=== PATIENT | male | born 1990 | race Caucasian/White ===

== ENCOUNTER 2023-11-22 18:20 | Emergency (ER) | payer OTHER ==
[2023-11-22] MEDS ORDERED: KETOROLAC 30 MG/ML INJ ONE (19:44)
[2023-11-22] MEDS ORDERED: ONDANSETRON 4 MG/2 ML VIAL ONE (19:44)
[2023-11-22] MEDS ORDERED: NA CHLORIDE 0.9% 1,000 ML ONE (19:45)
[2023-11-22] MEDS ORDERED: MORPHINE 4 MG/ML SYR ONE (19:45)
[2023-11-22 19:50] LABS: Absolute Basophils 0.2 K/uL (0-0.5); Absolute Eosinophils 0.2 K/uL (0-0.5); Absolute Lymphocytes (CBC) 3.1 K/uL (0.7-4.9); Absolute Monocytes 1.2 K/uL (0.1-1.3); Absolute Neutrophil 8.2 K/uL (1.8-8.0); Basophils % 1.2 % (0-1.3); Eosinophils % 1.3 % (0-4.4); Hematocrit 43.4 % (39.6-49.0); Hemoglobin 14.3 g/dL (13.6-17.9); Lymphocytes % 24.3 % (15.3-44.8); MCH 28.1 pg (27.0-35.0); MCHC 32.9 g/dL (32.0-36.0); MCV 85.4 fL (80-100); MPV 7.2 fL (7.6-11.3); Monocytes % 9.2 % (3.3-12.3); Nucleated Red Blood Cells % 0.1 % (0-0); Platelets 423 thou/uL (152-406); RBC Red Blood Cell Count 5.08 M/uL (4.33-5.43); Red Cell Distribution Width 13.1 % (12.1-15.2)
[2023-11-22 20:06] LABS: Albumin 3.9 g/dL (3.4-5.0); Albumin/Globulin Ratio 1.1 (1.1-1.8); Bilirubin Total 0.4 mg/dL (0.2-1.0); Globulin 3.7 g/dL (2.3-3.5); Protein, Total 7.6 g/dL (6.4-8.2)
--- NOTE | 2023-11-22 20:30 | RAD REPORT ---
EXAM DESCRIPTION: CTAbdomen Pelvis W Contrast - 11/22/2023 8:13 pm CLINICAL HISTORY: Abdominal pain. ABD PAIN COMPARISON: No comparisons TECHNIQUE: Biphasic CT imaging of the abdomen and pelvis was performed with 100 ml non-ionic IV cont rast. All CT scans are performed using dose optimization technique as appropriate and may include automated exposure control or mA/KV adjustment according to patient size. FINDINGS: The lung bases are clear.Cholecystectomy clips. The liver, spleen, pancreas, left adrenal gland and left kidney are within normal limits. 23 mm right adrenal mass, nonspecific but favored to be an adenoma. Mild right hydronephrosis and hydroureter is present. This is caused by 5 mm stone in the mid to dist al right ureter. No bowel obstruction, free air, free fluid or abscess. The appendix is normal. No evidence of signi ficant lymphadenopathy. No suspicious bony findings. IMPRESSION: 5 mm stone in the mid to distal right ureter resulting in mild right hydronephrosis and hydroureter.
[2023-11-22 21:06] LABS: Specific Gravity > 1.030 (1.005-1.030); Sqamous Epithelial None Seen /HPF (None Seen); Urine Bacteria None Seen /HPF (<20); Urine Bilirubin NEGATIVE (Negative); Urine Blood 3+ (Negative); Urine Clarity Clear (Clear); Urine Color Light-Yellow (Yellow); Urine Culture Reflex Order NOT NEEDED; Urine Glucose NEGATIVE (Negative); Urine Ketones 1+ (Negative); Urine Microscopic Reflex YN ORDER UMIC; Urine Mucus Slight /HPF (None Seen); Urine Nitrite NEGATIVE (Negative); Urine Protein TRACE (Negative); Urine RBC >50 /HPF (None Seen); Urine Urobilinogen Normal (Normal); Urine WBC <5 /HPF (<5)
--- NOTE | 2023-11-22 21:18 | EDPHYS ---
Physician Documentation [facility] Name: Kenton Gutierrez Age: 33 yrs Sex: Male : 1990 Arrival Date: 11/22/2023 Time: 18:20 Bed 2 Private MD: ED Physician Brit Childers HPI: 11/21 19:00 This 33 yrs old Male presents to ER via Ambulatory with complaints of ec2 Possible Kidney Stone. 19:00 Patient arrives today for evaluation of lower abdominal pain and right flank pain. ec2 Patient reports history of previous kidney stone, states he was clinically diagnosed with a kidney stone approximately 2 weeks ago. Initially had hematuria that is improved. Patient reports associated nausea, no vomiting. Reports history of cholecystectomy. Reports no fevers or chills. . Historical: - Allergies: 18:58 Sulfa (Sulfonamide Antibiotics); hb - Home Meds: 18:58 Flomax 0.4 mg Oral capsule [Active]; hb - PMHx: 18:58 Kidney Stones; Pancreatic Tumor; Sarcoma - Left Leg; hb - PSHx: 18:58 Sarcoma; Cholecystectomy; hb - Immunization history:: Adult Immunizations up to date. - Infectious Disease History:: Denies. - Social history:: Smoking status: Patient denies any tobacco usage or history of. ROS: 19:00 Constitutional: as per hpi ec2 Exam: 19:00 Constitutional: GEN: NAD Head: atraumatic Eyes: EOMI Ears: External ears are ec2 normal. CV: regular rate LUNGS: no respiratory distress ABD: non-distended, soft, tender in the right lower quadrant, no guarding, not rigid, right CVA TTP. SKIN: no evidence of rashes MSK: no evidence of trauma NEURO: moves all extremities equally Vital Signs: 18:56 BP 154 / 99; Pulse 96; Resp 16; Temp 98.9(TE); Pulse Ox 100% ; Weight 112 kg; Height 5 hb ft. 9 in. ; Pain 8/10; 19:40 BP 151 / 98; Pulse 108; Resp 20 S; Pulse Ox 99% on R/A; as6 20:41 BP 170 / 79; Pulse 92; Resp 16 S; Pulse Ox 97% on R/A; as6 21:17 BP 148 / 90; Pulse 91; Resp 16; Temp 98.4; Pulse Ox 100% ; Pain 0/10; jj7 18:56 Body Mass Index 36.46 (112.00 kg, 175.26 cm) hb 18:56 Pain Scale: Adult hb 21:17 Pain Scale: Adult jj7 MDM: 18:59 Patient medically screened. ec2 19:00 Data reviewed: vital signs. ED course: Patient arrives today for evaluation abdominal ec2 pain and flank pain for examination markable for abdominal findings as well. Will obtain lab work, urine studies, CT imaging. Considering UTI, pyelonephritis, ureteral stone. Additionally appendicitis. 20:10 ED course: Patient signed out to oncoming physician with pending lab work and CT ec2 imaging.. 20:45 ED course: 5 mm kidney stone noted right distal ureter with minimal hydro-. Waiting on sp3 UA. Pain is under control. Probable discharge home with urology follow-up and pain control meds.. 21:16 ED course: 5 mm kidney stone noted on the right ureter. UA demonstrates RBCs but no sp3 infection. Pain is still under control. We will discharge patient with follow-up with Dr. Youssef and p.o. diclofenac and tramadol as needed. Patient knows he may return to pain is unbearable or he gets worse.. 11/21 19:00 Order name: CBC with Diff; Complete Time: 20:30 ec2 11/21 19:00 Order name: CMP; Complete Time: 20:17 ec2 11/21 19:00 Order name: Lipase; Complete Time: 20:17 ec2 11/21 19:00 Order name: Urinalysis w/ reflexes; Complete Time: 21:06 ec2 11/21 19:00 Order name: CT Abd/Pelvis - IV Contrast Only; Complete Time: 20:30 ec2 11/21 19:00 Order name: IV Saline Lock; Complete Time: 19:43 ec2 11/21 19:00 Order name: Labs collected and sent; Complete Time: 19:43 ec2 Administered Medications: 19:52 Drug: NS 0.9% IV 1000 ml IV at 1 bolus Per protocol; 1000 mL bolus Route: IV; Rate: 1 as6 bolus; Site: right antecubital; 21:18 Follow up: IV Status: Completed infusion jj7 19:53 Drug: TORadol - Ketorolac IVP 15 mg IVP once Route: IVP; Site: right antecubital; as6 21:19 Follow up: Response: Marked relief of symptoms; Pain is decreased jj7 19:53 Drug: Ondansetron IVP 4 mg IVP once; over 2 minutes Route: IVP; Site: right antecubital;as6 21:18 Follow up: Response: Marked relief of symptoms jj7 19:53 Drug: morphine IVP or IV 4 mg IVP once over 4 mins Route: IVP; Infused Over: 4 mins; as6 Site: right antecubital; 21:19 Follow up: Response: Marked relief of symptoms; Pain is decreased jj7 Disposition Summary: 11/22/23 21:17 Discharge Ordered Notes: Location: Home sp3 Condition: Stable sp3 Diagnosis - Ureterolithiasis, kidney stone sp3 Followup: sp3 - With: Private Physician - When: Upon discharge from the Emergency Department - Reason: Continuance of care Followup: sp3 - With: Semaj Youssef MD - When: Upon discharge from the Emergency Department - Reason: Recheck today's complaints Discharge Instructions: - Discharge Summary Sheet sp3 - Kidney Stones sp3 - Dietary Guidelines to Help Prevent Kidney Stones sp3 Forms: - Medication Reconciliation Form sp3 - Thank You Letter sp3 - Antibiotic Education sp3 - Prescription Opioid Use sp3 - Patient Portal Instructions sp3 - Leadership Thank You Letter sp3 Prescriptions: - Diclofenac Sodium 75 mg Oral Tablet Sustained Release - take 1 tablet ORAL route 2 times per day; 30 tablet; Refills: 0, Product sp3 Selection Permitted - Tramadol 50 mg Oral Tablet - take 1 tablet ORAL route every 8 hours as needed; 12 tablet; Refills: 0, sp3 Product Selection Permitted Signatures: Dispatcher [employer] EDAndreea Hu RN RN Brit Wagoner MD MD sp3 Arturo Hughes RN RN as6 Herman Garcia MD MD ec2 Jesusita Wylie RN jj7 Corrections: (The following items were deleted from the chart) 19:03 19:00 ED course: Patient arrives today for evaluation abdominal pain and flank pain for ec2 examination markable for abdominal findings as well. Will obtain lab work, urine studies, CT imaging. . ec2
--- NOTE | 2023-11-22 21:18 | ER ---
Nurse's Notes [facility] Name: Kenton Gutierrez Age: 33 yrs Sex: Male : 1990 Arrival Date: 11/22/2023 Time: 18:20 Bed 2 Private MD: Diagnosis: Ureterolithiasis, kidney stone Presentation: 11/21 18:56 Chief complaint: Worsening right flank and groin pain x 2 weeks, N/V x 2 days. On hb Flomax for kidney stones. Coronavirus screen: At this time, the client does not indicate any symptoms associated with coronavirus-19. Ebola Screen: No symptoms or risks identified at this time. Initial Sepsis Screen: Does the patient meet any 2 criteria? No. Patient's initial sepsis screen is negative. Does the patient have a suspected source of infection? No. Patient's initial sepsis screen is negative. Risk Assessment: Do you want to hurt yourself or someone else? Patient reports no desire to harm self or others. Onset of symptoms was November 08, 2023. 18:56 Method Of Arrival: Ambulatory hb 18:56 Acuity: YU 3 hb Triage Assessment: 19:00 General: Appears in no apparent distress. Behavior is calm, cooperative. Pain: Pain hb currently is 8 out of 10 on a pain scale. Neuro: Level of Consciousness is awake, alert, obeys commands, Oriented to person, place, time, situation. Cardiovascular: Patient's skin is warm and dry. Respiratory: Respiratory effort is even, unlabored, Respiratory pattern is regular, symmetrical. GI: Reports nausea, vomiting. : Reports flank and groin pain. Historical: - Allergies: 18:58 Sulfa (Sulfonamide Antibiotics); hb - Home Meds: 18:58 Flomax 0.4 mg Oral capsule [Active]; hb - PMHx: 18:58 Kidney Stones; Pancreatic Tumor; Sarcoma - Left Leg; hb - PSHx: 18:58 Sarcoma; Cholecystectomy; hb - Immunization history:: Adult Immunizations up to date. - Infectious Disease History:: Denies. - Social history:: Smoking status: Patient denies any tobacco usage or history of. Screenin:33 [facility] ED Fall Risk Assessment (Adult) History of falling in the last 3 months, as6 including since admission No falls in past 3 months (0 pts) Confusion or Disorientation No (0 pts) Intoxicated or Sedated No (0 pts) Impaired Gait No (0 pts) Mobility Assist Device Used No (0 pt) Altered Elimination No (0 pt) Score/Fall Risk Level 0 - 2 = Low Risk Oriented to surroundings, Maintained a safe environment, Educated pt \T\ family on fall prevention, incl call for assistance when getting out of bed, Assessed \T\ reinforced patient's understanding of fall precautions, Hourly rounding (assess needs \T\ fall precautionary measures) done. Abuse screen: Denies threats or abuse. Denies injuries from another. Nutritional screening: No deficits noted. Tuberculosis screening: No symptoms or risk factors identified. Assessment: 19:40 General: Appears uncomfortable, Behavior is calm, cooperative. Pain: Complains of pain as6 in left flank and right flank. Neuro: Level of Consciousness is awake, alert, obeys commands, Oriented to person, place, time, situation. Cardiovascular: Capillary refill < 3 seconds Patient's skin is warm and dry. Respiratory: Respiratory effort is even, unlabored, Respiratory pattern is regular, symmetrical. GI: Reports nausea. : Reports pain in bilateral flank(s). EENT: No deficits noted. No signs and/or symptoms were reported regarding the EENT system. Derm: Skin is intact, is healthy with good turgor. Musculoskeletal: Circulation, motion, and sensation intact. 20:32 Reassessment: Patient appears in no apparent distress at this time. Patient and/or as6 family updated on plan of care and expected duration. Pain level reassessed. Patient is alert, oriented x 3, equal unlabored respirations, skin warm/dry/pink. Patient states feeling better. Patient states symptoms have improved. Vital Signs: 18:56 BP 154 / 99; Pulse 96; Resp 16; Temp 98.9(TE); Pulse Ox 100% ; Weight 112 kg; Height 5 hb ft. 9 in. ; Pain 8/10; 19:40 BP 151 / 98; Pulse 108; Resp 20 S; Pulse Ox 99% on R/A; as6 20:41 BP 170 / 79; Pulse 92; Resp 16 S; Pulse Ox 97% on R/A; as6 21:17 BP 148 / 90; Pulse 91; Resp 16; Temp 98.4; Pulse Ox 100% ; Pain 0/10; jj7 18:56 Body Mass Index 36.46 (112.00 kg, 175.26 cm) hb 18:56 Pain Scale: Adult hb 21:17 Pain Scale: Adult jj7 ED Course: 18:24 Patient arrived in ED. im 18:25 Herman Garcia MD is Attending Physician. ec2 18:58 Triage completed. hb 19:00 Arm band placed on. hb 19:43 CBC with Diff Sent. as6 19:43 Lipase Sent. as6 19:44 CMP Sent. as6 20:10 Attending Physician role handed off by Herman Garcia MD ec2 20:10 Brit Childers MD is Attending Physician. ec2 20:15 CT Abd/Pelvis - IV Contrast Only In Process Unspecified. EDMS 20:34 Bed in low position. Call light in reach. Side rails up X 1. Pulse ox on. NIBP on. as6 20:41 Arturo Hughes, PRIYANK is Primary Nurse. as6 21:17 Semaj Youssef MD is Referral Physician. sp3 21:17 No provider procedures requiring assistance completed. IV discontinued, intact, jj7 bleeding controlled, No redness/swelling at site. Pressure dressing applied. Administered Medications: 19:52 Drug: NS 0.9% IV 1000 ml IV at 1 bolus Per protocol; 1000 mL bolus Route: IV; Rate: 1 as6 bolus; Site: right antecubital; 21:18 Follow up: IV Status: Completed infusion jj7 19:53 Drug: TORadol - Ketorolac IVP 15 mg IVP once Route: IVP; Site: right antecubital; as6 21:19 Follow up: Response: Marked relief of symptoms; Pain is decreased jj7 19:53 Drug: Ondansetron IVP 4 mg IVP once; over 2 minutes Route: IVP; Site: right antecubital;as6 21:18 Follow up: Response: Marked relief of symptoms jj7 19:53 Drug: morphine IVP or IV 4 mg IVP once over 4 mins Route: IVP; Infused Over: 4 mins; as6 Site: right antecubital; 21:19 Follow up: Response: Marked relief of symptoms; Pain is decreased jj7 Medication: 20:34 VIS not applicable for this client. as6 Outcome: 21:17 Discharge ordered by . sp3 21:31 Discharged to home ambulatory, with significant other, jj7 21:31 Condition: improved 21:31 Discharge instructions given to patient, Instructed on discharge instructions, follow up and referral plans. no driving heavy equipment, Demonstrated understanding of instructions, follow-up care, medications, Prescriptions given X 2, 21:32 Patient left the ED. jj7 Signatures: Dispatcher [employer] EDAndreea Hu RN RN hb Brit Childers MD MD sp3 Arturo Hughes RN RN as6 Jesusita Wylie RN RN jj7 Bia Jacobson Edwin, MD MD ec2 Corrections: (The following items were deleted from the chart) 19:01 18:56 BP 171 / ???; Pulse 96bpm; Resp 16bpm; Pulse Ox 100%; Temp 98.9F Temporal; Pain hb 8/10, Adult; hb
[2023-11-23 01:15] VITALS: BP 148/90; TEMP 98.4; O2SAT 100
== END 2023-11-22 21:32 | disposition home or self-care (01) ==
LOC: ER 18:20
DX: N20.2 Calculus of kidney with calculus of ureter (principal); Z87.442 Personal history of urinary calculi; Z88.2 Allergy status to sulfonamides
CPT/HCPCS: 96361; 85025; 81001; 36415; 83690; 80053; 74177; 96375; 96374; 99284; Q9967; J2405; J7030

== ENCOUNTER 2024-04-24 07:31 | Day surgery (SDC) | payer OTHER ==
[2024-04-23 13:15] LABS: Anion Gap 8.8 mEq/L (5.0-15.0); Potassium 3.8 mEq/L (3.5-5.1)
[2024-04-24] MEDS ORDERED: CEFAZOLIN SODIUM 2 GM/VIAL ONE (07:53)
[2024-04-24] MEDS ORDERED: Ringers Lactate 1,000 ML IV ONE ×2 (07:54→13:25)
[2024-04-24] MEDS ORDERED: propofoL 200 MG/20 ML VIAL IV ONE (08:47)
[2024-04-24] MEDS ORDERED: LIDOCAINE 2% MPF 5 ML VIAL ONE (08:47)
[2024-04-24] MEDS ORDERED: ONDANSETRON 4 MG/2 ML VIAL ONE (08:47)
[2024-04-24] MEDS ORDERED: FENTANYL CITR 100 MCG/2 ML ONE ×3 (08:47→12:53)
[2024-04-24] MEDS ORDERED: ROCURONIUM 50 MG/5 ML VIAL IV ONE (08:47)
[2024-04-24] MEDS ORDERED: MIDAZOLAM HCL 2 MG/2 ML INJ ONE (08:47)
[2024-04-24] MEDS ORDERED: dexAMETHasone 10 MG/ML VIAL ONE (08:47)
[2024-04-24] MEDS ORDERED: KETOROLAC 30 MG/ML INJ ONE (08:47)
[2024-04-24] MEDS ORDERED: SUGAMMADEX SODIUM 200 MG/2 ML VIAL IV ONE (08:55)
[2024-04-24] MEDS ORDERED: SUCCINYLCHOLINE 20 MG/ML (10 ML) IV ONE (08:55)
[2024-04-24] MEDS: CEFAZOLIN SODIUM 2 GM/VIAL IVPB ONE (09:25)
[2024-04-24] MEDS: LIDOCAINE HCL/EPINEPHRINE 20 ML MDV ONE (09:51)
--- NOTE | 2024-04-24 10:31 | EKG ---
Test Date: 2024-04-23 Test Time: 12:35:25 Senior Pastor: TONEY MEASUREMENT RESULTS: Intervals: Rate: 94 [place]: 112 QRSD: 80 QT: 334 QTc: 417 [place]: P: 73 [place]: 112 QRS: 43 T: 48 INTERPRETIVE STATEMENTS: Normal sinus rhythm Normal ECG No previous ECG available for comparison Electronically Signed On 04-24-24 10:29:59 CDT by Sushil Almanza
[2024-04-24] MEDS: HYDROMORPHONE HCL 1 MG/ML INJ ONE ×2 (13:38→13:51)
[2024-04-24 15:10] VITALS: BP 118/72; TEMP 97.4; O2SAT 99
[2024-04-24] MEDS ORDERED: ONDANSETRON 4 MG (ODT) TAB ONE (15:33)
[2024-04-24] MEDS: ONDANSETRON 4 MG (ODT) TAB PO ONE (15:36)
--- NOTE | 2024-04-29 14:06 | OP ---
Date of Procedure: 04/24/2024 Surgeon: DANIEL BALLESTEROS Primary Care Physician: Unknown. Preoperative Diagnosis: Primary hyperparathyroidism. Postoperative Diagnosis: Primary hyperparathyroidism. Procedure Performed: Parathyroid exploration under general sedation. Anesthesia: General endotracheal anesthesia was administered. I also infiltrated approximately 10 mL of 1% lidocaine with 1:100,000 epinephrine at the incision site. Estimated Blood Loss: Less than 5 mL. Specimens: Submitted to pathology for evaluation. Findings: Very small thyroid lobes with redundant fatty tissue, central compartment. No evidence of enlarged lymph nodes. Right superior parathyroid gland examined and appeared to be normal size. Complications: None. Disposition: Stable. The patient tolerated the procedure well. Indications For Procedure: The patient is a 34-year-old male who presented to outpatient clinic with primary hyperparathyroidism with elevated calcium and intact PTH levels. These were indications to perform a parathyroid gland exploration. He understood, all questions were answered. Risks versus benefits and complications were explained in detail and a consent form was signed, which was placed in the chart. Description Of Procedure: The patient was transferred from the preoperative holding area to the operative suite by Department of Anesthesia, placed on the operating table supine, sedated and intubated in normal fashion. Approximately 10 mL of 1% lidocaine with 1:100,000 epinephrine was infiltrated at the incision site and then the patient was sterilely prepped and draped. An incision was made approximately 2 cm above the sternal notch with a #15 blade scalpel through the skin and subcutaneous tissue and then dissection down to the trachea was performed with the LigaSure. The subplatysmal flaps superior and inferior were created with the ligature. I was able to dissect down to the airway. The patient has very small thyroid with small thyroid lobes and appeared higher than its normal position. I dissected along the inferior poles of bilateral thyroid gland lobes and I dissected out, what appeared to be, parathyroid glands. They were submitted to pathology. Apparently, it was fatty tissue. Several PTH levels were drawn, which were significantly elevated, thereby confirming that the tissue was fat and not parathyroid gland. After approximately 3 hours of exploration, it was decided at this point to abort the procedure. The patient may need a more localizing procedure in the future to locate the glands. I did examine the bilateral posterior thyroid lobes and did not detect any evidence of parathyroid glands. My thought was also that he might have an intrathyroid parathyroid gland even though this does not coincide with the findings on the CT scan. The wound was irrigated and subplatysmal tissue was examined, there was no evidence of active bleeding. I placed Avitene in the wound bed and then closed the strap muscle with a single Vicryl suture 3- 0, and then platysmal flaps were reapproximated with 3-0 Vicryl in a simple interrupted fashion. The subcutaneous dermal and epidermal tissue was then reapproximated with 4-0 Monocryl in a simple interrupted and subcuticular fashion. A compressive dressing was placed. He tolerated the procedure well, will be discharged to home. He will be referred to parathyroid endocrine surgeon for second opinion, possibly re-exploration. KECIA/BLANK Voice ID: [id number] Report ID: [id number] DIANE
== END 2024-04-24 16:10 | disposition home or self-care (01) ==
LOC: OR 07:31 → MERGE 08:00 → OR 16:10
PROVIDERS: ATTEND Otolaryngology Facial Plastic Surgery
PROC: 0GTR0ZZ Resection of Parathyroid Gland, Open Approach (ICD-10-PCS; principal; 2024-04-24 08:45)
DX: C75.0 Malignant neoplasm of parathyroid gland (principal); E21.0 Primary hyperparathyroidism
CPT/HCPCS: 60500; 93005; 80048; 36415; 88331; 88305 ×2; 83970 ×4; Q0162; J2704; J2001; J2250; J3010 ×3; J1100; J1170 ×2; J2405; J7120 ×2

== ENCOUNTER 2024-07-31 22:20 | Emergency (ER) | payer OTHER ==
--- OUTSIDE RECORDS SUMMARY | 2024-07-31 22:23 | XMS REPORT | Continuity of Care Document ---
Author Name Unknown Address [address] [place] [address] [facility] Address [address] [place] [address] Care Team Providers Care Bag Machine Operator Name Role Phone Izabel Goodrich MD, Mike Avilez Primary Care Physici an Tiffanie Patricio MD, Shelia Attending Clinician [phone] Payers Payer Name Policy Type Policy Number Effective Date Expirati on Date Source Social History Social Habit Start Date Stop Date Quantity Comments Source Sexual orientation 2024-05-22 16:40:45 Heterosexual (finding) [facility] Sex assigned at 1990 00:00:00 1990 00:00:00 M [facility] Smoking Status Start Date Stop Date Source Tobacco smoking consumption unknown [facility] Medications Ordered Medication Name Filled Medication Name Start Date Stop Date Current Medication? Ordering Clinician Indication Dosage Frequency Signature (SIG) Comments Components Source dexamethaso ne (Decadron) 1 MG tablet 2023-08 010 00:00: 00 Yes [id number] 1mg Take 1 tablet (1 mg total) by mouth 1 (one) time for 1 dose. Take 1 mg tablet at 11pm night before adrenal labs (8-9am) [facility] Encounters Start Date/Time End Date/Time Encounter Type Admission Type Attending Clinicians Care Facility Care Department Encounter ID Source 2024-06-10 09:30:00 2024-06-10 09:41:03 [facility] Shelia Mathews [facility] 2 [id number] [facility] 2024-05-29 15:00:00 2024-05-29 15:00:00 [facility] Shelia Mathews [facility] 2 [id number] [facility]
[2024-07-31] MEDS ORDERED: ONDANSETRON 4 MG/2 ML VIAL ONE (23:53)
[2024-07-31] MEDS ORDERED: KETOROLAC 30 MG/ML INJ ONE (23:53)
[2024-07-31] MEDS ORDERED: MORPHINE 4 MG/ML SYR ONE (23:54)
[2024-07-31] MEDS ORDERED: NA CHLORIDE 0.9% 1,000 ML ONE (23:54)
[2024-07-31] MEDS ORDERED: MORPHINE 2 MG/ML SYR ONE (23:54)
[2024-08-01 00:24] LABS: Absolute Basophils 0.1 K/uL (0-0.5); Absolute Eosinophils 0.3 K/uL (0-0.5); Absolute Monocytes 0.9 K/uL (0.1-1.3); Absolute Neutrophil 4.9 K/uL (1.8-8.0); Basophils % 0.8 % (0-1.3); Eosinophils % 3.3 % (0-4.4); Hemoglobin 14.2 g/dL (13.6-17.9); Lymphocytes % 32.7 % (15.3-44.8); MCH 27.9 pg (27.0-35.0); MCHC 32.9 g/dL (32.0-36.0); MCV 84.8 fL (80-100); MPV 7.4 fL (7.6-11.3); Monocytes % 10.2 % (3.3-12.3); Nucleated Red Blood Cells % 0.1 % (0-0); Platelets 417 thou/uL (152-406); RBC Red Blood Cell Count 5.07 M/uL (4.33-5.43); Red Cell Distribution Width 13.6 % (12.1-15.2)
[2024-08-01 00:36] LABS: Calcium Oxalate Crystals- Ur Moderate /HPF (None Seen); Specific Gravity 1.027 (1.005-1.030); Sqamous Epithelial <5 /HPF (None Seen); Urine Bacteria <20 /HPF (<20); Urine Bilirubin NEGATIVE (Negative); Urine Blood 3+ (Negative); Urine Clarity Extremely Turbid (Clear); Urine Color Light-Yellow (Yellow); Urine Culture Reflex Order NOT NEEDED; Urine Glucose NEGATIVE (Negative); Urine Ketones NEGATIVE (Negative); Urine Microscopic Reflex YN ORDER UMIC; Urine Mucus 2+ /HPF (None Seen); Urine Nitrite NEGATIVE (Negative); Urine Protein 1+ (Negative); Urine RBC 21-50 /HPF (None Seen); Urine Urobilinogen Normal (Normal); Urine WBC <5 /HPF (<5); Urine pH 5.5 (5.0-7.0)
[2024-08-01 00:44] LABS: Albumin 3.6 g/dL (3.4-5.0); Albumin/Globulin Ratio 0.9 (1.1-1.8); Anion Gap 7.8 mEq/L (5.0-15.0); Bilirubin Total 0.2 mg/dL (0.2-1.0); Potassium 3.8 mEq/L (3.5-5.1); Protein, Total 7.6 g/dL (6.4-8.2)
--- NOTE | 2024-08-01 01:03 | RAD REPORT ---
EXAM: CT Abdomen and Pelvis Without Intravenous Contrast CLINICAL HISTORY: Left flank pain. TECHNIQUE: Axial computed tomography images of the abdomen and pelvis without intravenous contrast. Sagittal a nd coronal reformatted images were created and reviewed. This CT exam was performed using one or more of the following dose reduction techniques: automated exposure control, adjustment of the mA a nd/or kV according to patient size, and/or use of iterative reconstruction technique. COMPARISON: CT Abdomen Pelvis 11/22/2023. FINDINGS: Lung bases: Unremarkable. No mass. No consolidation. ABDOMEN: Liver: Unremarkable. Gallbladder and bile ducts: There has been a cholecystectomy. No ductal dilation. Pancreas: 2.1 x 1.4 x 2 cm cystic lesion in the pancreatic tail (previously 1.9 x 1.3 x 1.6 cm). No ductal dilation. Spleen: Unremarkable. No splenomegaly. Adrenals: Stable 2.2 cm right adrenal lesion measuring 11 Hounsfield units most compatible with a b enign adenoma. Kidneys and ureters: Mild left hydronephrosis and proximal hydroureter. 2 mm proximal left ureteral calculus (series 201 image 56, series 202 image 68 and series 203 image 97). Stomach and bowel: Moderate stool in the proximal to mid large bowel. No obstruction. No mucosal thickening. PELVIS: Appendix: Normal caliber appendix. No findings to suggest acute appendicitis. Bladder: Unremarkable. No stones. Reproductive: Unremarkable as visualized. ABDOMEN and PELVIS: Intraperitoneal space: Unremarkable. No free air. No significant fluid collection. Bones/joints: No acute fracture. No dislocation. Soft tissues: Unremarkable. Vasculature: Unremarkable. No abdominal aortic aneurysm. Lymph nodes: Unremarkable. No enlarged lymph nodes. IMPRESSION: 1. Mildly obstructing 2 mm proximal left ureteral calculus. 2. A 2.1 x 1.4 x 2 cm cystic lesion in the pancreatic tail (previously 1.9 x 1.3 x 1.6 cm). Recomme nd nonemergent pancreatic protocol MR for further characterization. 3. Other findings as above. Electronically signed by: Mily Dozier MD 08/01/2024 12:48 AM [facility] Due to temporary technical issues with the PACS/[employer] reporting system, reports are being albertina d by the in-house radiologist without review as a courtesy to ensure prompt reporting the interpreting radiologist is fully responsible for the content of the report. Transcribed Date/Time: 08/01/2024 1:03 AM
--- NOTE | 2024-08-01 03:43 | ER ---
Nurse's Notes [facility] Name: Kenton Gutierrez Age: 34 yrs Sex: Male : 1990 Arrival Date: 07/31/2024 Time: 22:20 Bed 4 Private MD: Diagnosis: Left proximal ureteral calculus, pancreatic cystic lesion Presentation: 07/31 22:55 Chief complaint: Patient states: "kidney stone, lower left back pain". Coronavirus vc1 screen: Client denies travel out of the [place] in the last 14 days. At this time, the client does not indicate any symptoms associated with coronavirus-19. Ebola Screen: Patient negative for fever greater than or equal to 101.5 degrees Fahrenheit, and additional compatible Ebola Virus Disease symptoms Patient denies exposure to infectious person. Patient denies travel to an Ebola-affected area in the 21 days before illness onset. No symptoms or risks identified at this time. Initial Sepsis Screen: Does the patient meet any 2 criteria? No. Patient's initial sepsis screen is negative. Does the patient have a suspected source of infection? No. Patient's initial sepsis screen is negative. Risk Assessment: Do you want to hurt yourself or someone else? Patient reports no desire to harm self or others. Onset of symptoms was July 31, 2024. 22:55 Method Of Arrival: Ambulatory vc1 22:55 Acuity: YU 3 vc1 08/01 01:52 Note pt reports pain relieved with Toradol refusing Morphine at this time medication kl wasted. Historical: - Allergies: 07/31 22:56 Sulfa (Sulfonamide Antibiotics); vc1 - Home Meds: 22:56 Flomax 0.4 mg Oral capsule [Active]; vc1 - PMHx: 22:56 Kidney stones; PANCREATIC TUMOR; Sarcoma - Left Leg; vc1 - PSHx: 22:56 Cholecystectomy; Sarcoma; vc1 - Immunization history:: Adult Immunizations up to date, . - Infectious Disease History:: Denies. - Social history:: Smoking status: Patient denies any tobacco usage or history of. - Family history:: not pertinent. Screenin:58 [facility] ED Fall Risk Assessment (Adult) History of falling in the last 3 months, vc1 including since admission No falls in past 3 months (0 pts) Confusion or Disorientation No (0 pts) Intoxicated or Sedated No (0 pts) Impaired Gait No (0 pts) Mobility Assist Device Used No (0 pt) Altered Elimination Yes (1 pt) Score/Fall Risk Level 0 - 2 = Low Risk Oriented to surroundings, Maintained a safe environment, Educated pt \\T\\ family on fall prevention, incl call for assistance when getting out of bed. Abuse screen: Denies threats or abuse. Nutritional screening: No deficits noted. Tuberculosis screening: No symptoms or risk factors identified. Assessment: 22:51 General: Appears uncomfortable, Behavior is calm, cooperative, appropriate for age. dd2 Pain: Complains of pain in left low back Pain does not radiate. Pain currently is 8 out of 10 on a pain scale. Neuro: Level of Consciousness is awake, alert, obeys commands, Oriented to person, place, time, situation, Appropriate for age. Cardiovascular: No deficits noted. Heart tones S1 S2 present Patient's skin is warm and dry. Respiratory: No deficits noted. Airway is patent Respiratory effort is even, unlabored, Respiratory pattern is regular, symmetrical. GI: No signs and/or symptoms were reported involving the gastrointestinal system. Abdomen is round non-distended, Abd is soft and non tender X 4 quads. : Reports pain in left in lower back. EENT: No deficits noted. No signs and/or symptoms were reported regarding the EENT system. Derm: No deficits noted. No signs and/or symptoms reported regarding the dermatologic system. Musculoskeletal: No deficits noted. No signs and/or symptoms reported regarding the musculoskeletal system. Circulation, motion, and sensation intact. Range of motion: intact in all extremities. Vital Signs: 22:55 Weight 99.79 kg; Height 5 ft. 8 in. ; Pain 8/10; vc1 22:57 BP 154 / 101; Pulse 101; Resp 14; Pulse Ox 100% ; vc1 23:54 BP 128 / 79; Pulse 87; Resp 18; Pulse Ox 98% on R/A; al5 22:55 Body Mass Index 33.45 (99.79 kg, 172.72 cm) vc1 22:55 Pain Scale: Adult vc1 [place] Coma Score: 08/01 19:54 Eye Response: spontaneous(4). Motor Response: obeys commands(6). Verbal Response: sp4 oriented(5). Total: 15. ED Course: 07/31 22:22 Patient arrived in ED. ra3 22:36 Nolan Duggan MD is Attending Physician. sp4 22:51 Patient has correct armband on for positive identification. Bed in low position. Call dd2 light in reach. Side rails up X 1. Provided Education on: call light, labs/radiology . Client placed on continuous cardiac and pulse oximetry monitoring. NIBP monitoring applied. Door closed. Noise minimized. Warm blanket given. Pillow given. Verbal reassurance given. 22:56 Triage completed. vc1 22:58 Arm band placed on right wrist. vc1 23:46 CBC with Diff Sent. kl 23:46 CMP Sent. kl 23:46 Lipase Sent. kl 23:46 Urinalysis w/ reflexes Sent. kl 23:46 No provider procedures requiring assistance completed. Inserted saline lock: 20 gauge kl in left antecubital area, using aseptic technique. Blood collected. Flushed with 10 mL NS. 08/01 00:10 CT Abd/Pelvis - Without Contrast In Process Unspecified. EDMS 00:57 GEMMA MCCALLUM RN is Primary Nurse. dd2 03:40 Semaj Youssef MD is Referral Physician. sp4 03:41 Ajay Ewing MD is Referral Physician. sp4 04:10 IV discontinued, intact, bleeding controlled, No redness/swelling at site. Pressure dd2 dressing applied. Administered Medications: 00:00 Drug: NS 0.9% IV 1000 ml IV at 1 bolus Per protocol; to be given as a bolus over 60 kl minutes Route: IV; Rate: 1 bolus; Site: left antecubital; 00:15 Follow up: Response: No adverse reaction dd2 01:00 Follow up: IV Status: Completed infusion; IV Intake: 1000ml dd2 00:00 Drug: Ondansetron IVP 8 mg IVP once; over 2 minutes Route: IVP; Site: left antecubital; kl 00:15 Follow up: Response: No adverse reaction dd2 00:04 Drug: Ketorolac IVP 30 mg IVP once Route: IVP; Site: left antecubital; kl 00:19 Follow up: Response: No adverse reaction dd2 01:52 Not Given (Patient Refused): morphineor iv 6 mg IVP once over 4 mins kl 04:06 Drug: Flomax PO 0.8 mg PO once Route: PO; dd2 04:48 Follow up: Response: Medication administered at discharge. dd2 Medication: 07/31 22:51 VIS not applicable for this client. dd2 Intake: 08/01 01:00 IV: 1000ml; Total: 1000ml. dd2 Outcome: 03:42 Discharge ordered by . sp4 04:10 Discharged to home ambulatory, dd2 04:10 Condition: stable 04:10 Discharge instructions given to patient, Instructed on discharge instructions, follow up and referral plans. medication usage, Demonstrated understanding of instructions, follow-up care, medications, Prescriptions given X 4, 04:11 Patient left the ED. dd2 Signatures: Dispatcher [employer] EDMS Laurence Brasher RN RN Ingrid Eaton RN RN vc1 Nolan Duggan MD MD sp4 Patricia Mercado ra3 Irina Childs RN RN al5 GEMMA MCCALLUM RN RN dd2 Corrections: (The following items were deleted from the chart) 02:50 02:48 BP 128 / 79; Pulse 87bpm; Resp 18bpm; Pulse Ox 98% RA; al5 al5
--- NOTE | 2024-08-01 03:43 | EDPHYS ---
Physician Documentation [facility] Name: Kenton Gutierrez Age: 34 yrs Sex: Male : 1990 Arrival Date: 07/31/2024 Time: 22:20 Bed 4 Private MD: ED Physician Nolan Duggan HPI: 07/31 22:36 This 34 yrs old Other Race Male presents to ER via Unassigned with complaints of Low sp4 Back Pain. 08/01 19:47 34-year-old male from [place] presents with moderate to severe left flank pain typical sp4 of his kidney stone. Patient reported vomiting . 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 sp4 Historical: - Allergies: 07/31 22:56 Sulfa (Sulfonamide Antibiotics); vc1 - Home Meds: 22:56 Flomax 0.4 mg Oral capsule [Active]; vc1 - PMHx: 22:56 Kidney stones; PANCREATIC TUMOR; Sarcoma - Left Leg; vc1 - PSHx: 22:56 Cholecystectomy; Sarcoma; vc1 - Immunization history:: Adult Immunizations up to date, . - Infectious Disease History:: Denies. - Social history:: Smoking status: Patient denies any tobacco usage or history of. - Family history:: not pertinent. ROS: 08/01 19:54 Constitutional: Negative for fever, chills, and weight loss, positive for left sp4 flank pain All other systems are negative, Exam: 19:54 Constitutional: This is a well developed, well nourished patient who is awake, alert, sp4 and in no acute distress. Head/Face: Normocephalic, atraumatic. Eyes: Pupils equal round and reactive to light, extra-ocular motions intact. Lids and lashes normal. Conjunctiva and sclera are not injected. Cornea within normal limits. Periorbital areas with no swelling, redness, or edema. ENT: Nares patent. No nasal discharge, no septal abnormalities noted. Tympanic membranes are normal and external auditory canals are clear. Oropharynx with no redness, swelling, or masses, exudates, or evidence of obstruction, uvula midline. Mucous membranes moist. Neck: Trachea midline, no thyromegaly or masses palpated, and no cervical lymphadenopathy. Supple, full range of motion without nuchal rigidity, or vertebral point tenderness. Chest/axilla: Normal chest wall appearance and motion. Nontender with no deformity. No lesions are appreciated. Cardiovascular: Regular rate and rhythm with a normal S1 and S2. No gallops, murmurs, or rubs. Normal PMI, no JVD. No pulse deficits. Respiratory: Lungs have equal breath sounds bilaterally, clear to auscultation and percussion. No rales, rhonchi or wheezes noted. No increased work of breathing, no retractions or nasal flaring. Abdomen/GI: Soft, with normal bowel sounds. No distension or tympany. No guarding or rebound. No evidence of tenderness throughout. Back: No spinal tenderness. No costovertebral tenderness. Skin: Warm, dry with normal turgor. Normal color with no rashes, no lesions, and no evidence of cellulitis. MS/ Extremity: Pulses equal, no cyanosis. Neurovascular intact. Full, normal range of motion. Neuro: Awake and alert, GCS 15, oriented to person, place, time, and situation. Cranial nerves II-XII grossly intact. Motor strength 5/5 in all extremities. Sensory grossly intact. Psych: Awake, alert, with orientation to person, place and time. Behavior, mood, and affect are within normal limits Vital Signs: 07/31 22:55 Weight 99.79 kg; Height 5 ft. 8 in. ; Pain 8/10; vc1 22:57 BP 154 / 101; Pulse 101; Resp 14; Pulse Ox 100% ; vc1 23:54 BP 128 / 79; Pulse 87; Resp 18; Pulse Ox 98% on R/A; al5 22:55 Body Mass Index 33.45 (99.79 kg, 172.72 cm) vc1 22:55 Pain Scale: Adult vc1 [place] Coma Score: 08/01 19:54 Eye Response: spontaneous(4). Motor Response: obeys commands(6). Verbal Response: sp4 oriented(5). Total: 15. MDM: 07/31 23:01 Medical Screening Exam initiated sp4 08/01 19:54 Differential diagnosis: arthritis, strain, fracture, sciatica, contusion, UTI. Data sp4 reviewed: vital signs, nurses notes, old medical records, lab test result(s), radiologic studies, CT scan. Consideration of Admission/Observation Escalation of care including admission/observation considered. ED course: He has revealed mildly obstructing 2 mm left proximal ureteral stone. Patient states pain is completely gone. Patient is stable for discharge home with as needed pain medicine and p.o. Flomax. Patient will CT revealed increasing in size cystic lesion in the tail of the pancreas. 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 07/31 22:59 Order name: CBC with Diff; Complete Time: :46 sp4 07/31 22:59 Order name: CMP; Complete Time: :46 sp4 07/31 22:59 Order name: Lipase; Complete Time: :46 sp4 07/31 22:59 Order name: Urinalysis w/ reflexes; Complete Time: :46 sp4 07/31 22:59 Order name: CT Abd/Pelvis - Without Contrast; Complete Time: :46 sp4 07/31 22:59 Order name: IV Saline Lock; Complete Time: 23:46 sp4 07/31 22:59 Order name: Labs collected and sent; Complete Time: 23:46 sp4 Administered Medications: 00:00 Drug: NS 0.9% IV 1000 ml IV at 1 bolus Per protocol; to be given as a bolus over 60 kl minutes Route: IV; Rate: 1 bolus; Site: left antecubital; 00:15 Follow up: Response: No adverse reaction dd2 01:00 Follow up: IV Status: Completed infusion; IV Intake: 1000ml dd2 00:00 Drug: Ondansetron IVP 8 mg IVP once; over 2 minutes Route: IVP; Site: left antecubital; kl 00:15 Follow up: Response: No adverse reaction dd2 00:04 Drug: Ketorolac IVP 30 mg IVP once Route: IVP; Site: left antecubital; kl 00:19 Follow up: Response: No adverse reaction dd2 01:52 Not Given (Patient Refused): morphineor iv 6 mg IVP once over 4 mins kl 04:06 Drug: Flomax PO 0.8 mg PO once Route: PO; dd2 04:48 Follow up: Response: Medication administered at discharge. dd2 Disposition Summary: 08/01/24 03:42 Discharge Ordered Notes: Location: Home sp4 Problem: new sp4 Symptoms: have improved sp4 Condition: Stable sp4 Diagnosis - Left proximal ureteral calculus, pancreatic cystic lesion sp4 Followup: sp4 - With: Semaj Youssef MD - When: 7 - 10 days - Reason: Recheck today's complaints Followup: sp4 - With: Ajay Ewing MD - When: 7 - 10 days - Reason: Recheck today's complaints Discharge Instructions: - Discharge Summary Sheet sp4 - Kidney Stones, [id number] sp4 Forms: - Patient Portal Instructions sp4 Prescriptions: - Flomax 0.4 mg Oral capsule - take 1 capsule ORAL route daily for 30 days; 30 capsule; Refills: 0, Product sp4 Selection Permitted - Ibuprofen 800 mg Oral Tablet - take 1 tablet ORAL route every 8 hours As needed take with food; 30 tablet; sp4 Refills: 0, Product Selection Permitted - Tramadol 50 mg Oral tablet - take 1 tablet ORAL route every 8 hours as needed for pain - take Together with sp4 Ibuprofen; 20 tablet; Refills: 0, Product Selection Permitted - ondansetron 8 mg Oral Tablet,disintegrating - take 1 tablet ORAL route every 8 hours PRN nausea; 30 tablet; Refills: 0, sp4 Product Selection Permitted Signatures: Dispatcher [employer] Laurence Macias, RN RN Ingrid Eaton RN RN vc1 Nolan Duggan MD MD sp4 GEMMA MCCALLUM RN RN dd2
[2024-08-01] MEDS ORDERED: TAMSULOSIN 0.4 MG SR CAP ONE (03:58)
[2024-08-01 04:31] VITALS: BP 128/79; O2SAT 98
== END 2024-08-01 04:11 | disposition home or self-care (01) ==
LOC: ER 22:20
DX: N20.1 Calculus of ureter (principal); K86.2 Cyst of pancreas; Z87.442 Personal history of urinary calculi
CPT/HCPCS: 96361; 85025; 81001; 36415; 83690; 80053; 74176; 96375; 96374; 99284; J2405; J7030; J2270